=== PATIENT | male | born 1980 | race Caucasian/White ===

== ENCOUNTER 2020-10-27 05:31 | Emergency (ER) | payer OTHER ==
[~2020-10-27] VITALS: Ht 188 cm; Wt 88.5 kg
[2020-10-27 06:31] LABS: Basophils # (auto) 0 10 ^3/uL (0-0.2); Basophils % (auto) 0.1 % (0.0-2.0); Eosinophils # (auto) 0 10 ^3/uL (0-0.8); Hematocrit 44.8 % (41.0-53.0); Hemoglobin 15.2 g/dL (13.5-17.5); Lymphocytes # (auto) 1.7 10 ^3/uL (0.4-5.4); Lymphocytes % (auto) 7.7 % (10.0-50.0); Mean Corpuscular Hemoglobin 32.4 pg (28.0-32.0); Mean Corpuscular Volume 95.3 fL (80.0-100.0); Monocytes # (auto) 1.9 10 ^3/uL (0-1.3); Monocytes % (auto) 8.4 % (0.0-12.0); Neutrophils # (auto) 18.9 10 ^3/uL (1.6-8.6); Neutrophils % (auto) 83.8 % (37.0-80.0); Nucleated Red Blood Cells % 0.1 %; Red Cell Distribution Width 13.1 % (11.8-14.3); White Blood Cell 22.6 10^3/uL (4.4-10.8)
[2020-10-27 06:43] LABS: BUN/Creatinine Ratio 8.1; Calcium 8.4 mg/dL (8.5-10.1); Potassium 3.9 mmol/L (3.5-5.1)
[2020-10-27 06:45] LABS: INR 1.1 (0.9-1.15); Partial Thromboplastin Time 24.2 sec (23.6-33.0)
[2020-10-27 06:46] LABS: Bilirubin, Total 0.6 mg/dL (0.2-1.0); Lactic Acid w/Reflex 4.8 mmol/L (0.4-2.0); Total Protein 7.7 g/dL (6.4-8.2)
[2020-10-27] MEDS ORDERED: MORPHINE SULFATE 4 MG/ML SYR/VIAL ONE (08:52)
[2020-10-27] MEDS ORDERED: ONDANSETRON HCL 4 MG/2 ML VIAL ONE (08:53)
[2020-10-27 09:30] VITALS: BP 94/67
[2020-11-03] MEDS ORDERED: ONDANSETRON HCL 4 MG/2 ML VIAL IV ONE (10:30)
[2020-11-03] MEDS ORDERED: MORPHINE SULFATE 4 MG/ML SYR/VIAL IV ONE (10:30)
== END 2020-10-27 10:12 | disposition short-term general hospital (02) ==
LOC: ER 05:31
DX: S22.31XA Fracture of one rib, right side, initial encounter for closed fracture (principal); S36.039A Unspecified laceration of spleen, initial encounter; S00.83XA Contusion of other part of head, initial encounter; K66.9 Disorder of peritoneum, unspecified; M79.604 Pain in right leg; M79.605 Pain in left leg; M79.641 Pain in right hand; M79.642 Pain in left hand; M54.2 Cervicalgia; R07.89 Other chest pain; M54.9 Dorsalgia, unspecified; M79.672 Pain in left foot; M79.671 Pain in right foot; V49.9XXA Car occupant (driver) (passenger) injured in unspecified traffic accident, initial encounter; Y93.89 Activity, other specified; Y92.89 Other specified places as the place of occurrence of the external cause; Y99.8 Other external cause status
CPT/HCPCS: 36415; 70450; 70486; 71250; 72125; 73120; 73590; 73620; 74176; 80053; 80320; 83605; 83690; 85025; 85610; 85730; 86850; 86900; 86901; 93005; 96374; 96375; 99285; J2270; J2405

== ENCOUNTER 2024-09-03 14:46 | Emergency (ER) | payer OTHER ==
[~2024-09-03] VITALS: Ht 188 cm; Wt 73.4 kg
[2024-09-03 15:00] VITALS: BP 110/61; RESP 16; TEMP 97.7; O2SAT 97
[2024-09-03 15:11] VITALS: PULSE 85
--- NOTE | 2024-09-03 15:17 | ED.PDOC ---
HPI (NEURO) HPI Comments This is a 44 year old male presenting to the ED with chief complaint of generalized weakness. Patient reports that he suffered a CVA a week ago, being seen in [place] and transferred to [facility] in [place] before being discharged. Patient relays that since then, he has been experiencing generalized weakness and still feels terrible. Patient states that his friends had mentioned to him today that he appeared "yellow." Patient denies any chest pain, SOB, numbness, tingling, syncope, or dizziness. Patient appears to be in poor overall health. Patient is a bradycardic at arrival. Chief Complaint: General Weakness Time Seen by MD: 15:14 Reviewed Notes: Nurses Notes, Medications, Allergies Information Source: Patient Mode of Arrival: Ambulatory Severity: Moderate Dizziness/Weakness Severity: Unable to do activities Timing: Days Duration: Since onset Prehospital treatment: None Weakness Location: Generalized Onset: At rest Circumstances: Spontaneous Symptoms: Weakness History of: CVA Modifying factors: Nothing Associated Signs and Symptoms: Weakness, None Past Medical History PAST MEDICAL HISTORY: CVA Past Medical History (Other): Recent CVA event Surgical History: Denies all surgeries Family History Family History: Reviewed,noncontributory to illness Social History Smoker: Non-Smoker Alcohol: Denies ETOH Use Drugs: Denies Drug Use Lives In: Home Constitutional: reports: fatigue, malaise, weakness; denies: chills, diaphoresi s, fever, sweats, others EENTM: denies: blurred vision, double vision, ear bleeding, ear discharge, ear drainage, ear pain, ear ringing, eye pain, eye redness, hearing loss, mouth pain, mouth swelling, nasal discharge, nose bleeding, nose congestion, nose pain, photophobia, tearing, throat pain, throat swelling, voice changes, others Respiratory: denies: cough, hemoptysis, orthopnea, SOB at rest, shortness of breath, SOB with excertion, stridor, wheezing, others Cardiovascular: denies: chest pain, dizzy spells, diaphoresis, Dyspnea on exertion, edema, irregular heart beat, left arm pain, lightheadedness, palpitations, PND, syncope, others Gastrointestinal: denies: abdomen distended, abdominal pain, blood streaked bowels, constipated, diarrhea, dysphagia, difficulty swallowing, hematemesis, melena, nausea, poor appetite, poor fluid intake, rectal bleeding, rectal pain, vomiting, others Genitourinary: denies: burning, dysuria, flank pain, frequency, hematuria, incontinence, penile discharge, penile sore, pain, testicle pain, testicle swelling, urgency, others Neurological: reports: weakness; denies: dizziness, fainting, headache, left sided numbness, left sided weakness, numbness, paresthesia, pre-existing deficit, right sided numbness, right sided weakness, seizure, speech problems, tingling, tremors, others Musculoskeletal: denies: back pain, gout, joint pain, joint swelling, muscle pain, muscle stiffness, neck pain, others Integumetry: denies: bruises, change in color, change in hair/nails, dryness, laceration, lesions, lumps, rash, wounds, others Allergic/Immunocompromised: denies: Difficulty Healing, Frequent Infections, Hives, Itching, others Hematologic/Lymphatic: denies: anemia, blood clots, easy bleeding, easy bruising, swollen glands, others Endocrine: denies: excessive hunger, excessive sweating, excessive thirst, excessive urination, flushing, intolerance to cold, intolerance to heat, unexplained weight gain, unexplained weight loss, others Psychiatric: reports: depression; denies: anxiety, bipolar disorder, hopeless, panic disorder, schizophrenia, sleepless, suicidal, others All Other Systems: Reviewed and Negative Physical Exam General Appearance: Moderate Distress (Patient appears to be in moderate distress due to generalized weakness concerns. Patient appears to be in poor overall health. Patient is not icteric or jaundiced at time of evaluation.), Normal HEENT: Normal ENT Inspection, Pharynx Normal, TMs Normal Neck: Full Range of Motion, Non-Tender, Normal, Normal Inspection Respiratory: Chest Non-Tender, Lungs Clear, No Accessory Muscle Use, No Respiratory Distress, Normal Breath Sounds Cardiovascular: No Edema, No JVD, No Murmur, No Gallop, Normal Peripheral Pulses, Regular Rate/Rhythm Breast Exam: Deferred Gastrointestinal: No Organomegaly, Non Tender, No Pulsatile Mass, Normal Bowel Sounds, Soft Genitalia: Deferred Pelvic: Deferred Rectal: Deferred Extremities: No calf tenderness, Normal capillary refill, Non-tender, No pedal edema Neurologic: Alert Cerebellar Function: NOT DONE Reflexes: NOT DONE Skin: Dry, Normal Color, Warm Lymphatic: No Adenopathy Was a procedure done? Was a procedure done?: No Differential Diagnosis (SZ) Seizure: Other (Status post CVA event. Generalized weakness, electrolyte abnormality, sepsis, UTI, sequelae from CVA event) X-Ray, Labs, Meds, VS Vital Signs Date Time Temp Pulse Resp B/P (MAP) Pulse Ox O2 Delivery O2 Flow Rate FiO2 09/03/24 15:11 85 09/03/24 15:00 97.7 53 16 110/61 (77) 97 97.7 Lab Test 09/03/24 16:39 09/03/24 15:43 Range/Units Troponin I High Sensitivity Pending 30 </=54 ng/L White Blood Count 10.6 4.4-10.8 10^3/uL Red Blood Count 4.41 L 4.5-5.90 10^6/uL Hemoglobin 14.4 13.5-17.5 g/dL Hematocrit 41.3 41.0-53.0 % Mean Corpuscular Volume 93.5 80.0-100.0 fL Mean Corpuscular Hemoglobin 32.6 H 28.0-32.0 pg Mean Corpuscular Hemoglobin Concent 34.9 32.0-36.0 g/dL Red Cell Distribution Width 13.3 11.8-14.3 % Platelet Count 534 H 140-450 10^3/uL Mean Platelet Volume 8.0 6.9-10.8 fL Neutrophils (%) (Auto) 65.2 37.0-80.0 % Lymphocytes (%) (Auto) 21.5 10.0-50.0 % Monocytes (%) (Auto) 11.4 0.0-12.0 % Eosinophils (%) (Auto) 1.0 0.0-7.0 % Basophils (%) (Auto) 0.9 0.0-2.0 % Neutrophils # (Auto) 6.9 1.6-8.6 10 ^3/uL Lymphocytes # (Auto) 2.3 0.4-5.4 10 ^3/uL Monocytes # (Auto) 1.2 0-1.3 10 ^3/uL Eosinophils # (Auto) 0.1 0-0.8 10 ^3/uL Basophils # (Auto) 0.1 0-0.2 10 ^3/uL Nucleated Red Blood Cells 0.0 % D-Dimer, Quantitative 2.03 H 0.0-0.49 mg/L FEU Sodium Level 139 136-145 mmol/L Potassium Level 4.1 3.5-5.1 mmol/L Chloride Level 103 98-107 mmol/L Carbon Dioxide Level 26 20-31 mmol/L Anion Gap 10 5-15 Blood Urea Nitrogen 17 9-23 mg/dL Creatinine 1.13 0.700-1.30 mg/dL Glomerular Filtration Rate Calc 82 >90 mL/min BUN/Creatinine Ratio 15.0 10.0-20.0 Serum Glucose 90 74-106 mg/dL Calcium Level 10.0 8.7-10.4 mg/dL Magnesium Level 2.4 1.6-2.6 mg/dL Total Bilirubin 0.9 0.2-1.0 mg/dL Aspartate Amino Transferase (AST) 19 13-40 U/L Alanine Aminotransferase (ALT) 25 7-40 U/L Alkaline Phosphatase 106 46-116 U/L Total Protein 7.4 5.7-8.2 g/dL Albumin 4.9 H 3.2-4.8 g/dL Current Medications Medications (Trade) Dose Ordered Sig/Kali Route Start Time Stop Time Status Last Admin Sodium Chloride 1,000 ml @ 1,000 mls/hr Q1H ONCE IV 09/03/24 15:15 09/03/24 16:14 DC 09/03/24 15:54 X-Ray, Labs, Meds, VS Comment All studies performed the ED were evaluated by me personally. Serum laboratories were relatively unremarkable other than an elevated D-dimer. EKG revealed an atrial fibrillation with a rate of 85. Left ventricular hypertrophy was noted as well as abnormal T-wave in anterior lateral leads and baseline wander in multiple leads as well. QT interval was 424. I attempted to notify the patient of the elevated D-dimer in the need for a CT angiogram, but nursing stated the patient was assisted on receiving a bed and when he was notified that that may be some time before were able to accommodate him, patient signed an AMA form and left the facility. Nursing stated they informed the patient aggressively that his medical concerns could have significant consequences including the possibility of . Patient stated he understood and signed the form any way. Time of 1ST Reevaluation: 17:06 Reevaluation 1ST: Improved Consultation: PCP Patient Education/Counseling: Diagnosis, Treatment Family Education/Counseling: Diagnosis, Treatment, No Family Present Departure 1 Departure Time of Disposition: 17:06 Impression: Primary Impression: Weakness Disposition: LEFT AGAINST MEDICAL ADVICE Condition: Fair Discharged With: Self Critical Care Note Critical Care Time?: No Stability Stability form required: No Heart Score Heart Score: Heart Score Response (Comments) Value History Slightly Suspicious 0 EKG Repolarization Disturb 1 Age <45 0 Risk Factors No known risk factors 0 Troponin Normal limit 0 Total 1 I personally scribed for ZULEYKA ZARATE PAC ([email or web address]) on 09/03/24 at 15:17. Electronically submitted by Jose Miguel Gan ([email or web address]). ZULEYKA ZARATE PAC Sep 03, 2024 15:17
[2024-09-03] MEDS: SODIUM CHLORIDE 0.9% 1,000 ML IV ONE (15:54)
[2024-09-03] MEDS: ONDANSETRON ODT 4 MG TAB PO ONE (15:55)
[2024-09-03 15:58] LABS: Hematocrit 41.3 % (41.0-53.0); Hemoglobin 14.4 g/dL (13.5-17.5); Mean Corpuscular Hemoglobin 32.6 pg (28.0-32.0); Mean Corpuscular Volume 93.5 fL (80.0-100.0); Nucleated Red Blood Cells % 0.0 %
[2024-09-03 16:11] LABS: Alanine Aminotransferase 25 U/L (7-40); Alkaline Phosphatase 106 U/L (46-116); Anion Gap 10 (5-15); BUN/Creatinine Ratio 15.0 (10.0-20.0); Blood Urea Nitrogen 17 mg/dL (9-23); Calcium 10.0 mg/dL (8.7-10.4); Carbon Dioxide 26 mmol/L (20-31); Chloride 103 mmol/L (98-107); Glucose 90 mg/dL (74-106); Magnesium 2.4 mg/dL (1.6-2.6); Potassium 4.1 mmol/L (3.5-5.1); Sodium 139 mmol/L (136-145); Total Protein 7.4 g/dL (5.7-8.2)
[2024-09-03 16:12] LABS: Albumin 4.9 g/dL (3.2-4.8); Bilirubin, Total 0.9 mg/dL (0.2-1.0)
--- NOTE | 2024-09-07 18:41 | ECG ---
[facility] Test Date: 2024-09-03 Test Time: 15:11:53 Pat Name: JAYY LAWTON Department: ER Room: Gender: M Hvac Mechanic: THERESE : 1980 Requested By: ZULEYKA ZARATE Order Number: [id number] Reading MD: Lopez Manuel Measurements Intervals Cord Rate: 85 P: 0 MD: 0 QRS: 59 QRSD: 105 T: -76 QT: 424 QTc: 505 Interpretive Statements Atrial fibrillation Left ventricular hypertrophy Abnrm T, consider ischemia, anterolateral lds Baseline wander in lead(s) I,III,aVR,aVL Electronically Signed On 09-08-2024 17:45:12 PDT by Lopez Manuel Please click the below link to view image of tracing.
== END 2024-09-03 17:02 | disposition left against medical advice (07) ==
LOC: ER 14:53
DX: R53.1 Weakness (principal); Z86.73 Personal history of transient ischemic attack (TIA), and cerebral infarction without residual deficits
CPT/HCPCS: 36415; 80053; 83735; 84484; 85025; 85379; 93005; 96360; 99284; J7030